=== PATIENT | female | born 1970 | race Caucasian/White ===

== ENCOUNTER 2017-05-21 14:06 | Outpatient (CLI) | payer OTHER ==
[~2017-05-21] VITALS: Ht 162.6 cm; Wt 74.1 kg
[2017-05-21 14:00] VITALS: BP 114/75; PULSE 96; RESP 18; Ht 162.6 cm; Wt 74.1 kg
[2017-05-21] MEDS ORDERED: PANT40TA3 PO (14:11)
[2017-05-21] MEDS ORDERED: ONDA-43 PO (14:11)
[2017-05-21] MEDS ORDERED: IBUP-1542 PO (14:11)
--- NOTE | 2017-05-21 14:57 | CONS ---
Date/Time of Note Date/Time of Note DATE: 05/21/17 TIME: 14:57 Assessment/Plan Assessment/Plan Additional Assessment/Plan [facility] INITIAL OUTPATIENT CONSULTATION NOTE DATE OF CONSULTATION: 05/21/2017 PLACE OF SERVICE: [facility] ASSESSMENT AND PLAN: A very-pleasant 46-year-old lady with 8 year history of abdominal pain of unclear etiology. Considered differential included bile duct or gallbladder issues, gastritis or ulcer disease, colon issues, renal or genitourinary issues, musculoskeletal and psychiatric issues. Most of the above have been looked at very carefully and sometimes with numerous studies ( specifically gallbladder). Colon as not been evaluated and therefore there is usefulness for colonoscopy. Patient's history indicates diarrhea or constipation linked to episodes of pain. Patient also has stable lesions in her liver at least since 2006 which appear to be cysts, but no official liver MRI has been done in the past that we have record of to help delineate and further characterize these areas. Possibility of neuroendocrine disease with metastasis to the liver is entertained and should be considered in the differential. Overall, I do not believe that the patient has malignancy as the driving force behind her symptoms. We also discussed potential psychiatric or psychological stressors. Patient did have psychosocial stressors in her marriage 8 years ago when the symptoms started, but does seem to have been resolved a number of years ago and the symptoms still persist. I do not get the sense that the patient has psychiatric issues as the main driver/merchandiser of the pain. Potentially, if the workup continues to be negative, we could consider scheduling the patient for a laparoscopic exploration with the aim of removing the gallbladder and assessing the liver with intraoperative ultrasound and possible biopsy. This approach would also have the benefit of being able to run the small intestine and look for evidence of small neuroendocrine disease which sometimes presents with similar symptoms. Finally, patient may benefit from formal genetic counseling given the prevalence of breast cancer in her immediate family at young age. This is despite negative BRCA workup that the patient had a few years ago. I explained all the above to the patient in detail (no family present during my discussions with the patient) and answered all her questions to the best my ability. I believe that the patient understood and agreed with the plans. With above assessment, I've recommended the followin. Colonoscopy 2. Triple phase liver dedicated abdominal MRI 3. Possible need for percutaneous liver biopsy to include normal liver depending on above MRI 4. Return to the office after above to consider possible laparoscopic exploration of the abdomen with plans of removal of gallbladder, possible ultrasound of the liver with possible biopsy as well as running the bowel to look for rare pathology such as neuroendocrine malignancies (low likelihood) 5. Consider referring patient for formal genetic counseling given significant family history of breast cancer Thank you very much for having me involved in the care of this very pleasant patient and wonderful family. If you have any questions, please feel free to contact me at [phone]. Nature of presenting problem: Moderate severity Please note that, given the extensive number of diagnoses or management options , the extensive amount and/or complexity of data needed to be reviewed, and moderate to high risk of complications and/or morbidity or mortality, this qualifies as high complexity type of decision-making. Disclaimer: Inadvertent spelling and grammatical errors are likely due to EHR/ dictation software use and do not reflect on the quality of delivered patient care. Also, please note that the electronic time recorded on this node does not necessarily reflect the actual time of the visit. Updated clinical summary: Very pleasant 46-year-old with a few comorbidities, presenting with 8 year history of abdominal pain of unclear etiology. Comorbidities: 1. Abdominal pain, right upper quadrant; EGD and HIDA scan 2016 both negative. Numerous studies including multiple ultrasounds as well as abdominal CTs and pelvic MRI done in the past without clarification of the etiology of the pain. 2. Hepatomegaly with possible fatty liver disease abdominal ultrasound 2015 3. Status post hysterectomy, reportedly secondary to fibroids 4. BMI 28 5. 6. EGD 08/27/2016: LA grade a reflux esophagitis with normal stomach and duodenum. 7. On albuterol but no history of asthma CONSULTATION REQUESTED BY: Cynthia Ruffin MD HISTORY OF PRESENT ILLNESS: The patient is a very pleasant 41-year-old lady with above-mentioned comorbidities: Reclast consult regarding management of her long-standing right upper quadrant abdominal pain that has been ongoing for the last 8 years. The patient describes the pain as a sharp pain that starts in the right upper quadrant with some radiation to the back at times. This occurs 2-3 times a month and can last up to 2-3 days at a time. She has had multiple workups including at least one other admission of the hospital for abdominal pain recently in April 2017 to [facility]. She has had extensive number of images done, as well as multiple laboratory values. She has had upper endoscopies that showed mild gastritis in the esophagus but no obvious pathology. No colonoscopy in the past. No liver MRIs in the past. She has had multiple cysts in her liver that have been seen since at least 2006 and not significantly changed in size but perhaps increase in number. No obvious pathology seen in the rest of the abdominal cavity. There are no exacerbating factors or alleviating factors for the pain. There is no obvious relationship to food. The only consistent associated symptoms is change in bowel habits in the form of diarrhea or constipation when the pain is present. No blood in stool or urine. No issues with shortness of breath or chest pain or other problems with weight gain or weight loss. No other complaints during the visit. ALLERGIES: NO KNOWN DRUG ALLERGIES MEDICATIONS Documented in the electronic records and reviewed by me. Please see the electronic records for details. SOCIAL HISTORY: The patient lives with family. 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 There are no other significant medical, surgical or oncologic issues in the family as reported by the patient or reflected in the chart. REVIEW OF SYSTEMS: Other than mentioned above, there were no other pertinent positives or pertinent negatives in an otherwise complete 14 point review of systems. PHYSICAL EXAMINATION GENERAL: The patient appears to be a very pleasant lady of descent lying in bed, appearing stated age,] and otherwise in no acute distress. BMI: 28 VITAL SIGNS: AVSS (please also see auto important data if available as well as the electronic records) HEENT: Normocephalic and atraumatic. Extraocular muscles and hearing are grossly intact bilaterally and symmetrically. Sclerae are nonicteric. Oral cavity is clear; oral mucosa appear to be pink and moist. Dentition: fair. NECK: Supple. There is no lymphadenopathy or JVD. There is no submental, submandibular or supraclavicular lymphadenopathy. CHEST: Rises symmetrically with each breath; patient is breathing comfortably. There are no audible wheezes, rales or rhonchi on the gross exam. HEART: Pulse is regular and palpable on the right wrist. Capillary refill is normal. Carotid pulses are palpable bilaterally and symmetrically in the neck. EXTREMITIES: Lower extremities contain no pitting edema around the ankles bilaterally and symmetrically. ABDOMEN: Abdomen is soft, nontender and nondistended. No evidence of ascites, organomegaly, caput medusae, engorged subcutaneous veins, or other abnormalities. There are no peritoneal signs or guarding. SKIN: Appears to be pink and feels warm to touch. NEUROLOGIC: Awake, alert, and follows commands appropriately. LABORATORY DATA: See below. Hepatitis panel negative April 2017. Hepatitis A immune 07/24/2016. 07/12/2016: Hemoglobin A1c 5.3. IMAGING: See electronic chart. Please note that I've personally reviewed all pertinent available images and I agree in general with their overall reported findings. Consultation Date/Type/Reason Admit Date/Time Exam/Review of Systems Vital Signs Vitals Vital Signs Date Time Temp Pulse Resp B/P Pulse Ox O2 Delivery O2 Flow Rate FiO2 05/21/17 14:00 98.4 96 18 114/75 95 Room Air TORIE BARNETT M.D. May 21, 2017 14:57
== END 2017-05-21 16:10 | disposition home or self-care (01) ==
LOC: HPC 14:06
PROVIDERS: ATTEND Transplant Surgery
DX: R10.11 Right upper quadrant pain (principal); R16.0 Hepatomegaly, not elsewhere classified; K21.0 Gastro-esophageal reflux disease with esophagitis
CPT/HCPCS: G0463

== ENCOUNTER 2017-10-01 14:49 | Outpatient (CLI) | payer OTHER ==
[~2017-10-01] VITALS: Ht 160 cm; Wt 77.0 kg
[~2017-10-01 14:49] MED LIST: IBUP-1542 PO; ONDA-43 PO; PANT40TA3 PO
[2017-10-01 15:02] VITALS: BP 115/77; PULSE 83; RESP 16; Ht 160 cm; Wt 77.0 kg
--- NOTE | 2017-10-01 15:28 | PN ---
Date/Time of Note Date/Time of Note DATE: 10/01/17 TIME: 15:28 Assessment/Plan Assessment/Plan Assessment/Plan [facility] Progress Note Date of Service: 10/01/2017 Location of Service: [facility] Today's Assessment & Plan: Overall stable but with ongoing issues with abdominal pain without change since last visit with us in May. Colonoscopy negative. Genetic counselling pending for later in October. Reviewed options including watchful waiting vs surgical intervention with laparoscopic cholecystectomy, with inclusion of liver biopsy as well as running the bowel. Reviewed risks, benefits and alternatives and answered all questions. Patient and her appeared to understand and wished to proceed with surgery. Previous assessments that applied today: A very-pleasant 47-year-old lady with 8 year history of abdominal pain of unclear etiology. Considered differential included bile duct or gallbladder issues, gastritis or ulcer disease, colon issues, renal or genitourinary issues , musculoskeletal and psychiatric issues. Most of the above have been looked at very carefully and sometimes with numerous studies (specifically gallbladder) . Colon has not been evaluated and therefore there is usefulness for colonoscopy. Patient's history indicates diarrhea or constipation linked to episodes of pain. Patient also has stable lesions in her liver at least since 2006 which appear to be cysts, but no official liver MRI has been done in the past that we have record of to help delineate and further characterize these areas. Possibility of neuroendocrine disease with metastasis to the liver is entertained and should be considered in the differential. Overall, I do not believe that the patient has malignancy as the driving force behind her symptoms. We also discussed potential psychiatric or psychological stressors. Patient did have psychosocial stressors in her marriage 8 years ago when the symptoms started, but does seem to have been resolved a number of years ago and the symptoms still persist. I do not get the sense that the patient has psychiatric issues as the main rear load truck driver of the pain. Potentially, if the workup continues to be negative, we could consider scheduling the patient for a laparoscopic exploration with the aim of removing the gallbladder and assessing the liver with intraoperative ultrasound and possible biopsy. This approach would also have the benefit of being able to run the small intestine and look for evidence of small neuroendocrine disease which sometimes presents with similar symptoms. Finally, patient may benefit from formal genetic counseling given the prevalence of breast cancer in her immediate family at young age. This is despite negative BRCA workup that the patient had a few years ago. With above assessment, I've recommended the followin. Schedule patient for laparoscopic, possible open, cholecystectomy, intraoperative ultrasound of liver with liver biopsy, possible bowel resection, possible ostomy Thank you very much for having me involved in the care of this very pleasant patient and wonderful family. If you have any questions, please feel free to contact me at [phone]. Nature of presenting problem: Moderate severity Please note that, given the extensive number of diagnoses or management options , the extensive amount and/or complexity of data needed to be reviewed, and moderate to high risk of complications and/or morbidity or mortality, this qualifies as high complexity type of decision-making. Disclaimer: Inadvertent spelling and grammatical errors are likely due to EHR/ dictation software use and do not reflect on the quality of delivered patient care. Also, please note that the electronic time recorded on this node does not necessarily reflect the actual time of the visit. Updated clinical summary: Very pleasant 46-year-old with a few comorbidities, presenting with 8 year history of abdominal pain of unclear etiology. Comorbidities: 1. Abdominal pain, right upper quadrant; EGD and HIDA scan 2016 both negative. Numerous studies including multiple ultrasounds as well as abdominal CTs and pelvic MRI done in the past without clarification of the etiology of the pain. S /p colonoscopy 07/22/17 Dr. Ines Harris [facility] surgery center: nl exam; no specimens collected. 2. Hepatomegaly with possible fatty liver disease abdominal ultrasound 2015 3. Status post hysterectomy, reportedly secondary to fibroids 4. BMI 28 5. 6. EGD 08/27/2016: LA grade a reflux esophagitis with normal stomach and duodenum. 7. On albuterol but no history of asthma Subjective: No major events or complaints with the exception of ongoing pain similar to this summer's visit, associated with nausea and some vomiting. Patient had a normal colonoscopy and her EGD also showed minor gastritis. No sob or cp; + bowel activity; + activity Objective: Vitals: See below Exam: GENERAL: On exam, the patient was sitting in a chair and appeared to be comfortable and in no acute distress. ABDOMEN: Soft, nontender and nondistended. There are no peritoneal signs or guarding. SKIN: Skin appears to be pink and feels warm to touch. NEUROLOGIC: Patient is awake, alert, and follows commands appropriately. Exam/Review of Systems Vital Signs Vitals Vital Signs Date Time Temp Pulse Resp B/P Pulse Ox O2 Delivery O2 Flow Rate FiO2 10/01/17 15:02 98.1 83 16 115/77 99 Room Air TORIE BARNETT M.D. Oct 01, 2017 15:28
== END 2017-10-01 17:00 | disposition home or self-care (01) ==
LOC: HPC 14:49
PROVIDERS: ATTEND Transplant Surgery
DX: R10.11 Right upper quadrant pain (principal); R16.0 Hepatomegaly, not elsewhere classified; Z90.710 Acquired absence of both cervix and uterus
CPT/HCPCS: G0463

== ENCOUNTER 2017-10-10 06:28 | Day surgery (SDC) | payer OTHER ==
[2017-10-09 11:14] VITALS: Ht 160 cm; Wt 75.0 kg
[2017-10-10] VITALS (10 sets, daily range): BP systolic 85–107; BP diastolic 53–67; PULSE 70–97; RESP 15–19
[~2017-10-10] VITALS: Ht 160 cm; Wt 75.0 kg
[2017-10-10] MEDS ORDERED: CEFAZOLIN 2 GM/50 ML (PMX) 50 ML IVPB SCH (07:00)
[2017-10-10] MEDS ORDERED: CEFAZOLIN 1 GM INJ ONE (07:00)
[2017-10-10] MEDS ORDERED: D5W-0.45 NACL + KCL 20 MEQ 1,000 ML IV SCH (07:00)
[2017-10-10 07:28] LABS: BASOPHIL # 0.1 10^3/ul (0.0-0.1); BASOPHILS % 0.6 % (0.0-2.0); EOSINOPHILS # 0.3 10^3/ul (0.0-0.5); EOSINOPHILS % 3.3 % (0.0-7.0); HEMATOCRIT 36.4 % (37.0-47.0); HEMOGLOBIN 12.6 g/dl (12.0-16.0); LYMPHOCYTES # 2.4 10^3/ul (0.8-2.9); MEAN CORPUSCULAR HEMOGLOBIN 31.2 pg (29.0-33.0); MEAN CORPUSCULAR HGB CONC 34.6 g/dl (32.0-37.0); MEAN CORPUSCULAR VOLUME 90.1 fl (82.0-101.0); MEAN PLATELET VOLUME 10.6 fl (7.4-10.4); MONOCYTE # 0.5 10^3/ul (0.3-0.9); MONOCYTES % 6.8 % (0.0-11.0); NEUTROPHIL # 4.6 10^3/ul (1.6-7.5); NEUTROPHILS % 58.8 % (39.0-77.0); PLATELET COUNT 327 10^3/UL (140-415); RED BLOOD COUNT 4.04 10^6/ul (4.20-5.40); RED CELL DISTRIBUTION WIDTH 12.4 % (11.5-14.5); WHITE BLOOD COUNT 7.9 10^3/ul (4.8-10.8)
[2017-10-10] MEDS ORDERED: LIDOCAINE 2% (SDV) 5 ML INJ ONE (08:02)
[2017-10-10] MEDS ORDERED: MEPERIDINE 100 MG INJ ONE (08:02)
[2017-10-10] MEDS ORDERED: PROPOFOL 20 ML ONE (08:02)
[2017-10-10] MEDS ORDERED: ROCURONIUM 50 MG INJ ONE (08:02)
[2017-10-10] MEDS ORDERED: NEOSTIGMINE 3 MG/3 ML SYRINGE ONE ×2 (08:02→09:54)
[2017-10-10] MEDS ORDERED: SUCCINYLCHOLINE CHLORIDE 100 MG/5 ML SYG IV ONE (08:02)
[2017-10-10] MEDS ORDERED: GLYCOPYRROLATE 0.4 MG INJ ONE ×2 (08:02→09:54)
--- NOTE | 2017-10-10 08:06 | HPN ---
Date/Time of Note Date/Time of Note DATE: 10/10/17 TIME: 08:06 Interval H&P Admission Note Pt. seen H&P reviewed: No system changes Pt. seen H&P reviewed. No system changes (I attest that I have seen and examined the patient and reviewed the operation in detail, as well as its risks , benefits and alternatives of the operation). I attest that I have seen and examined the patient and reviewed in detail the operation, and its associated risks, benefits and alternative. I have answered all the patient's questions to the best of my ability and the patient wishes to proceed. Please refer to rest of electronic medical record for additional updates. TORIE BARNETT M.D. Oct 10, 2017 08:06
[2017-10-10] MEDS ORDERED: BUPIVACAINE 0.5%/EPI (SDV) 30 ML INJ ONE ×2 (08:15→10:02)
[2017-10-10] MEDS ORDERED: METOCLOPRAMIDE 10 MG INJ IV PRN (08:30)
[2017-10-10] MEDS ORDERED: FENTAnyl 50 MCG/ML VIAL IV PRN ×3 (08:30)
[2017-10-10] MEDS ORDERED: EPHEDrine SULFATE 50 MG/5 ML SYG IV PRN (08:30)
[2017-10-10] MEDS ORDERED: LABETALOL HCL 20MG INJ IV PRN (08:30)
[2017-10-10] MEDS ORDERED: DIPHENHYDRAMINE 50 MG INJ IV PRN (08:30)
[2017-10-10] MEDS ORDERED: ONDANSETRON 4 MG INJ IV PRN (08:30)
[2017-10-10] MEDS ORDERED: MIDAZOLAM 1 MG/ML 2 ML INJ IV PRN (08:30)
[2017-10-10] MEDS ORDERED: hydrALAzine 20 MG INJ IV PRN (08:30)
[2017-10-10] MEDS ORDERED: HYDROmorphONE (0.2 MG/ML) 10ML SYG IV PRN ×3 (08:30)
[2017-10-10] MEDS ORDERED: MEPERIDINE 25 MG INJ IV PRN (08:30)
[2017-10-10] MEDS ORDERED: OXYCODONE/ACETAMINOPHEN (5/325) TAB PO PRN ×2 (08:30)
[2017-10-10] MEDS ORDERED: ONDANSETRON 4 MG INJ ONE (09:29)
[2017-10-10] MEDS ORDERED: METOCLOPRAMIDE 10 MG INJ ONE (09:51)
--- NOTE | 2017-10-10 10:27 | OPR ---
Date/Time of Note Date/Time of Note DATE: 10/10/17 TIME: 10:27 Operative Report Free Text/Dictation [facility] INPATIENT OPERATIVE NOTE PLACE OF SERVICE: [facility] DATE OF SURGERY: 10/10/2017 PREOPERATIVE DIAGNOSIS: 1. Abdominal pain with possible biliary colic. Abdominal pain, right upper quadrant; EGD and HIDA scan 2016 both negative. Numerous studies including multiple ultrasounds as well as abdominal CTs and pelvic MRI done in the past without clarification of the etiology of the pain. S/p colonoscopy 07/22/17 Dr. Ines Harris [facility] surgery center: nl exam; no specimens collected. 2. Hepatomegaly with possible fatty liver disease abdominal ultrasound 2015 3. Status post hysterectomy, reportedly secondary to fibroids 4. BMI 28 5. 6. EGD 08/27/2016: LA grade a reflux esophagitis with normal stomach and duodenum. 7. On albuterol but no history of asthma POSTOPERATIVE DIAGNOSIS: 1. Abdominal pain with possible biliary colic. Abdominal pain, right upper quadrant; EGD and HIDA scan 2016 both negative. Numerous studies including multiple ultrasounds as well as abdominal CTs and pelvic MRI done in the past without clarification of the etiology of the pain. S/p colonoscopy 07/22/17 Dr. Ines Harris [facility] surgery [place]: nl exam; no specimens collected. 2. Hepatomegaly with possible fatty liver disease abdominal ultrasound 2015 3. Status post hysterectomy, reportedly secondary to fibroids 4. BMI 28 5. 6. EGD 08/27/2016: LA grade a reflux esophagitis with normal stomach and duodenum. 7. On albuterol but no history of asthma OPERATION: 1. Laparoscopic cholecystectomy 2. Laparoscopic exploration of abdominal cavity 3. Intraoperative ultrasound of liver 4. Core needle liver biopsy of segment 6 (3 cores) 5. Laparoscopic suture of middle hepatic vein venotomy gallbladder bed 6. Laparoscopic lysis of adhesions (15 minutes) SURGEON: Torie Barnett M.D. LINUX SYSTEM ADMIN: HEMAL Kat ANESTHESIA: General endotracheal tube anesthesia ANESTHESIOLOGIST: Ann Mckeon M.D. BRIEF SUMMARY: An otherwise uncomplicated laparoscopic expiration of abdominal cavity with intraoperative ultrasound of the liver and liver biopsy along with cholecystectomy was performed with findings of essentially normal anatomy and no obvious explanation for patient's abdominal pain. There was small amount of omental adhesion onto the area of the umbilicus on the anterior abdominal wall which we took down which may have caused abdominal pain, but this has to be proven in time. Updated clinical summary: Very pleasant 46-year-old with a few comorbidities, presenting with 8 year history of abdominal pain of unclear etiology. Comorbidities: 1. Abdominal pain, right upper quadrant; EGD and HIDA scan 2016 both negative. Numerous studies including multiple ultrasounds as well as abdominal CTs and pelvic MRI done in the past without clarification of the etiology of the pain. S /p colonoscopy 07/22/17 Dr. Ines Harris [facility] surgery center: nl exam; no specimens collected. 2. Hepatomegaly with possible fatty liver disease abdominal ultrasound 2015 3. Status post hysterectomy, reportedly secondary to fibroids 4. BMI 28 5. 6. EGD 08/27/2016: LA grade a reflux esophagitis with normal stomach and duodenum. 7. On albuterol but no history of asthma BRIEF HISTORY: The patient is a very pleasant 46-year-old with a few comorbidities, presenting with 8 year history of abdominal pain of unclear etiology. Patient had had a number of studies as mentioned above and no clear etiology behind her pain was found. In order to eliminate some of the diagnoses , and after a few visits over the course of a number of months, I finally recommended that we consider surgical exploration. I met with the patient and family () and counseled them regarding the possible options of treatment , and I strongly suggested a laparoscopic, possible open cholecystectomy. We reviewed the operation in detail as well as the risks, benefits, alternatives, and expected outcomes of this operation. After careful consideration of all the risks, benefits, and alternatives, the patient and family appeared to understand those risks and wished to proceed with surgery. For a detailed report of my consultation with patient and family, please refer to my separate consultation note. STATEMENT OF THE INFORMED CONSENT: The patient and family appeared to understand the risks of the operation to include, but not be limited to risk of postoperative pain and scar tissue, possible infection or bleeding requiring other interventions such as opening the wound, placement of drainage catheters, or other operative interventions; possible injury to surrounding to structures including bowel, bladder, bile duct, or blood vessels, or solid organs such as liver, kidney, or pancreas requiring other interventions or procedures; possible leakage of bile from surgical clip sites, suture lines, or worse, from common bile duct injury, causing significant increase in morbidity and mortality and requiring multiple interventions including but not limited to, placement of drainage catheters, imaging studies, as well as operative interventions; possible other source of sepsis such as urinary tract infections or pneumonias, or other sources of potentially life threatening problems such as deep venous thrombus formation causing pulmonary embolism, myocardial arrhythmias and infarctions, and even . After careful consideration of all their options, the patient and family appeared to understand and wished to proceed with surgery. DESCRIPTION OF PROCEDURE: After obtaining informed consent, the patient was brought into the operating room and was placed in a normal supine position, where successful general endotracheal tube anesthesia was performed. The patient 's abdominal skin was prepped and draped, from the nipple line down to the level of the groins, in the usual sterile fashion. Intravenous access was already in place, and appropriately chosen and dosed prophylactic intravenous antimicrobials were administered. We then called a surgical time-out where patient's identification, date of , nature of the operation, allergies, presence of intravenous antimicrobials, presence of needed equipment, and any other concerns were reviewed and agreed upon by all members of the operating room team. We then started the operation by placing a 5-mm skin incision in the right- upper quadrant, subcostal midclavicular line, and introduced a 5-mm [employer] trocar into the peritoneal space, visualizing all the layers of the abdominal wall as we entered. Note that there was no indication of any injury to underlying structures once we entered the peritoneum. We insufflated the abdominal cavity to a maximum pressure of 15 mmHg, again, confirmed lack of any injury to underlying structures prior to visualizing the rest of the abdominal cavity. We found the fundus of the gallbladder to be visible. There was no evidence of malignancy. No evidence of calcifications or significant issues with adhesions, or other abnormalities. The liver appeared to be healthy. With this information, we went a head and placed the other trocars under direct visualization, after injecting their sites with 0.25% Marcaine with epinephrine , placing a 5-mm trocar in the umbilical midline area, a 5-mm trocar in the right anterior axillary line, and a 12-mm trocar in the midline subxiphoid region. With our instruments in place, we had excellent visualization and access to the right-upper quadrant. We then ran the bowel from ligament of Treitz all the way down to the rectum laparoscopically and visualize both surfaces of the bowel and the mesentery. No pathology was found. No areas of obstruction or obvious malignancy was found. In order to accomplish this task, we did have to lyse adhesions of the omentum onto the underside of the umbilicus in the anterior abdominal wall region using cold scissors. We next performed an intraoperative ultrasound of the liver as follows. Intraoperative ultrasound of the liver: The following segments were visualized, and there were no lesions that were concerning for malignant disease in any of them: Caudate lobe: No lesion. Segment 2: No lesion. Segment 3: No lesion. Segment 4: No lesion in segment 4A and no lesion in segment 4B. Segment 5: No lesion. Segment 6: No lesion. Segment 7: No lesion. Segment 8: No lesion. We also noted antegrade flow through the portal vein on the left and right as well as the hepatic artery on the left and right and also antegrade flow through the middle right and left hepatic veins. Biliary system was not dilated. I also put the probe along the area of head of pancreas to attempt to visualize the organ with limited success. No obvious pathology was found with this maneuver in the pancreas. The flow of blood in the superior mesenteric artery and in the portal vein and celiac arteries were antegrade and normal. We then grasped the fundus of the gallbladder and pointed up towards the right- upper quadrant. There was mild omental adhesions onto the infundibulum which we took down with judicious use of cautery, as well as meticulous blunt dissection. We were then able to grasp the infundibulum and pull it out in order to expose the critical triangle of Calot. We then placed our usual serosal cuts along the long axis of the gallbladder 1 cm away from its attachment to the liver bed up towards the fundus, and then joined these 2 lines under the infundibulum, taking care not to deliver any energy to underlying structures. We then performed meticulous dissection to identify and circumferentially isolate both the cystic duct and cystic artery, prior to transecting them between 2 surgical Endoclips, proximally and one distally on the cystic artery and 3 surgical endoclips proximally and one distally on the cystic duct, transecting both using cold scissors, and only after making sure that these were the only 2 structures going into the gallbladder. We then shaved the gallbladder off the gallbladder bed using cautery. Towards the fundus of the gallbladder, we noticed that there was a hole in what appeared to be the end branches of the middle hepatic vein. I immediately controlled this using one [id number] 3-0 Vicryl suture that we applied laparoscopically. Adequate hemostasis was very nicely achieved and no further bleeding was encountered. We then delivered the gallbladder out inside of an EndoCatch bag through the 12-mm trocar site without enlarging the fascia or contaminating the wound. The gallbladder was sent to Pathology for evaluation. We also performed a laparoscopic core needle liver biopsy of segment 6 of the liver and sent 3 cores to pathology for permanent sections using Wickr core needle liver biopsy instrument. Returning to the abdominal cavity, we ensured that there was adequate hemostasis and bile-stasis prior to removal of all of or equipment, including the pneumoperitoneum, and then reapproximating the 12-mm trocar site with one [id number] 0 Vicryl suture, followed by washing the wounds with copious amounts of normal saline, and then reapproximating the skin using interrupted 4- 0 Monocryl sutures. Light dressing was then applied. At the end of the operation, both the sponge count and needle count were reportedly correct x2. The patient tolerated the procedure without any reported complications. ESTIMATED BLOOD LOSS: 10 mL BLOOD OR BLOOD PRODUCT TRANSFUSIONS: None to my knowledge. SPECIMENS: 1. Gallbladder 2. Core needle liver biopsy segment 6 (3 cores) GRAFTS: None COMPLICATIONS: None. DISPOSITION: Recovery area. Disclaimers: 1. Inadvertent spelling and grammatical errors are likely due to electronic health record (EHR)/dictation software used and do not reflect on the quality of delivered patient care. 2. The electronic timestamp recorded on this note does not necessarily reflect the actual date and time of the visit or the service. 3. Portions of this note may have been created through electronic templates and computer algorithms that might bring in information either from the system or from other physicians and providers. Please note that such information may or may not contain errors, the occurrence of which are outside of my control. In general (but not always) this happens either in the beginning or at the end of the note. The portion of the note that I have created are generally done in 1 continuous block of text, flanked at the beginning and at the end by " ", and entered into one field in the EHR. 4. There may be other unanticipated errors in the note that are outside of my control. I can only attest to the portions of the note that I have created. TORIE BARNETT M.D. Oct 10, 2017 10:27
[2017-10-10] MEDS ORDERED: DOCUSATE SODIUM 100 MG CAP PO PRN (10:30)
[2017-10-10] MEDS ORDERED: HYDROCODONE/APAP (5/325) TAB PO PRN ×2 (10:30)
[2017-10-10] MEDS ORDERED: BISACODYL 10 MG SUPP PR PRN (10:30)
== END 2017-10-10 11:50 | disposition home or self-care (01) ==
LOC: SDS 06:28
PROVIDERS: ATTEND Transplant Surgery
DX: R10.11 Right upper quadrant pain (principal); K76.0 Fatty (change of) liver, not elsewhere classified
CPT/HCPCS: 47000; 47562; 85025; J0690; J1170; J2175; J2405; J2710; J2765

== ENCOUNTER 2017-10-20 13:18 | Outpatient (CLI) | payer OTHER ==
[~2017-10-20] VITALS: Ht 160 cm; Wt 74.5 kg
[2017-10-20 13:34] VITALS: BP 109/74; PULSE 82; RESP 16; Ht 160 cm; Wt 74.5 kg
--- NOTE | 2017-10-20 14:37 | PN ---
DATE: 10/20/2017 [facility] PROGRESS [facility] PLACE: [facility]. SUBJECTIVE: The patient returns today as her first postoperative visit after undergoing laparoscopic cholecystectomy with intraoperative liver biopsy, as well as running the small intestine to look for any other abnormalities, such as small neuroendocrine tumors or other issues that would explain the patient's 9-year chronic abdominal pain. The gallbladder itself appeared to be completely normal and this was verified on her pathology report. I did not see any other lesions in her small intestine or stomach and colon regions, but we did see a fair amount of steatosis and this was also confirmed on the patient's final pathology results. The patient herself reports to be feeling well and the initial pain that she had chronically for the last 9 years at least so far seems to have disappeared. No issues with her wounds and no difficulties with fevers or chills or other urgent or emergent problems postoperatively. OBJECTIVE VITAL SIGNS: Appear to be normal. Her BMI is 29.1. ABDOMEN: Soft, nontender, and nondistended. Her wounds appear to be healing well without any evidence of erythema, edema, discharge, or hernia. There are no peritoneal signs or guarding. SKIN: Appears to be pink and feels warm to touch. NEUROLOGIC: She is awake, alert, and follows commands appropriately. IMPRESSION AND PLAN: A very pleasant 47-year-old lady status post laparoscopic cholecystectomy and intraoperative ultrasound, as well as biopsy of the liver, who is doing very well postoperatively without any evidence of wound issues or hernia or infection. So far, the patient's symptoms seem to have improved with the operation. This certainly has to be reevaluated within the next 3 to 4 months and I have asked the patient to please call our office and let us know how she is doing. We did spend quite a bit of time in the office discussing the significant hepatic steatosis and I again went through means of achieving the overall goal of bringing her BMI down to between 18 to 24, and the importance of doing so in order to help avoid future problems with her liver. The patient appeared to understand and agreed with the plan. With above assessment, I recommend the followin. Follow with primary care physician. 2. Permanent lifestyle changes with both a healthier habits of eating, as well as consistent exercise with the goal bringing the BMI down to between 18 to 24. 3. Follow up with us via phone in 2 to 3 months and let us please know how the symptoms have changed since the operation. 4. Possible consideration for hepatology consultation and followup after above findings. Thank you again for allowing us to continue to participate in the care of this very pleasant lady and her wonderful family. If there are any questions, please feel free to contact me at [phone]. The nature of presenting problem: Moderate risk. Complex of decision-making: High complexity. Updated Clinical Summary: Very pleasant 46-year-old with a few comorbidities, presenting with 8 year history of abdominal pain of unclear etiology. Abd MRI w/wo [facility] 07/16/17 showed generalized mild fatty hepatic infiltration and no other abnormalities. Comorbidities: 1. Abdominal pain, right upper quadrant; EGD and HIDA scan 2015 both negative. Numerous studies including multiple ultrasounds as well as abdominal CTs and pelvic MRI done in the past without clarification of the etiology of the pain. S /p colonoscopy 07/22/17 Dr. Ines Harris [facility] surgery center: nl exam; no specimens collected. S/p laparoscopic cholecystectomy and intraoperative ultrasound, as well as biopsy of the liver [facility] 10/10/17 with finding of normal gallbladder and marked steatosis of the liver 2. Hepatomegaly with possible fatty liver disease abdominal ultrasound 2015 3. Status post hysterectomy, reportedly secondary to fibroids 4. BMI 28 5. 6. EGD 08/27/2016: LA grade a reflux esophagitis with normal stomach and duodenum. 7. On albuterol but no history of asthma Dictated By: TOIRE PLAZA/HIPOLITO Conf#: [id number] DID#: [id number] [facility]
== END 2017-10-20 16:41 | disposition home or self-care (01) ==
LOC: HPC 13:18
PROVIDERS: ATTEND Transplant Surgery
DX: K21.0 Gastro-esophageal reflux disease with esophagitis (principal); R10.11 Right upper quadrant pain; R16.0 Hepatomegaly, not elsewhere classified; Z90.710 Acquired absence of both cervix and uterus
CPT/HCPCS: G0463